=== PATIENT | male | born 1940 | race Caucasian/White ===

== ENCOUNTER 2019-01-05 00:34 | Emergency (ER) | payer OTHER ==
[~2019-01-05] VITALS: Ht 167.6 cm; Wt 79.4 kg
[2019-01-05 00:48] VITALS: BP 152/98
--- NOTE | 2019-01-05 00:51 | NUR ---
BIBRA. C/O "SOB, DIAPHORETIC" +SOB. +ACUTE DISTRESS. CONNECTED TO CPAP. GIVEN NITRO. WHEEZING NOTED. AOX4, TACHYCARDIC, TACHYPNEIC, HYPERTENSIVE. SKIN WARM DRY INTACT. SEEN BY DR HOLT. FAMILY AT BEDSIDE.
[2019-01-05] MEDS ORDERED: LIDOCAINE 2% JEL UROJET 10 ML MM ONE (00:56)
[2019-01-05] MEDS ORDERED: FUROSEMIDE 40 MG/4 ML VIAL ONE (00:56)
[2019-01-05] MEDS ORDERED: ASPIRIN 81 MG TAB.CHEW ONE (00:57)
[2019-01-05] MEDS ORDERED: NITROGLYCERIN PACKET 1 GM PACKET ONE (00:57)
[2019-01-05 00:58] LABS: BASOPHILS # (AUTO) 0.1 /CMM (0.0-0.2); BASOPHILS % (AUTO) 0.7 % (0.0-2.0); EOSINOPHILS % (AUTO) 3.5 % (0.0-6.0); HEMATOCRIT 38 % (39-51); HEMOGLOBIN 12.7 g/dL (13.5-17.5); LYMPHOCYTES # (AUTO) 1.7 /CMM (0.8-4.8); MEAN CORPUSCULAR HGB CONC 34 g/dl (31.0-36.0); MEAN CORPUSCULAR VOLUME 94 fL (80-96); MONOCYTES # (AUTO) 0.8 /CMM (0.1-1.30); MONOCYTES % (AUTO) 9.6 % (2.0-12.0); NEUTROPHILS # (AUTO) 5.6 /CMM (1.8-8.9); NEUTROPHILS % (AUTO) 66.2 % (43.0-81.0); PLATELET COUNT (AUTO) 263 /CMM (150-450); RED BLOOD CELL COUNT(AUTO) 4.02 MIL/uL (4.5-6.0); WHITE BLOOD COUNT (AUTO) 8.5 K/uL (4.3-11.0)
[2019-01-05] MEDS: ASPIRIN 81 MG TAB.CHEW PO ONE (01:00)
[2019-01-05] MEDS: FUROSEMIDE 40 MG/4 ML VIAL IV ONE (01:00)
[2019-01-05] MEDS: NITROGLYCERIN PACKET 1 GM PACKET TD ONE (01:05)
[2019-01-05 01:07] LABS: CALCIUM, SERUM 8.4 mg/dL (8.5-10.1); CARBON DIOXIDE 23 mmol/L (21-32); CHLORIDE 98 mmol/L (98-107); CREATININE 1.2 mg/dL (0.6-1.3); GLUCOSE 182 mg/dL (74-106); POTASSIUM 4.6 mmol/L (3.5-5.1); SODIUM SERUM 133 mmol/L (136-145); UREA NITROGEN, BLOOD 30 mg/dL (7-18)
[2019-01-05] MEDS: LIDOCAINE 2% JEL UROJET 10 ML MM ONE (01:15)
[2019-01-05 01:19] LABS: ALANINE AMINOTRANSFERASE 47 U/L (12-78); ALBUMIN 3.4 g/dL (3.4-5.0); ALKALINE PHOSPHATASE 71 U/L (46-116); ASPARTATE AMINOTRANSFERASE 38 U/L (15-37); B-TYPE NATRIURETIC PEPTIDE 7461 PG/ML (0-125); BILIRUBIN,DIRECT 0.2 mg/dL (0.0-0.2); BILIRUBIN,TOTAL 0.5 mg/dL (0.2-1.0)
--- NOTE | 2019-01-05 01:25 | NUR ---
INSERTED CAT PER MD ORDER. PT RUSH WELL. WILL CONT TO MONITOR.
[2019-01-05 01:26] LABS: D-DIMER 1.41 mg/L(FEU (0.17-0.50)
[2019-01-05] MEDS: IV NS 0.9% 500 ML BAG IV ONE (02:08)
--- NOTE | 2019-01-05 02:09 | NUR ---
NITRO PATCH D/C PER MD. STARTED INFUSING IVF
--- NOTE | 2019-01-05 02:13 | NUR ---
RT AT BEDSIDE. SWITCHING FROM CPAP TO SIMPLE MASK @ 6L. O2 SAT 99%
[2019-01-05] MEDS ORDERED: CT SWABBABLE VALVE TRANS SET 1 EA INFUS.SET MC ONE (02:17)
[2019-01-05] MEDS ORDERED: IV NS 0.9% 250 ML IV ONE (02:17)
[2019-01-05] MEDS ORDERED: IOHEXOL-350 100 ML VIAL IV ONE (02:17)
--- NOTE | 2019-01-05 02:32 | NUR ---
PT TAKEN TO CT VIA HECTOR
--- NOTE | 2019-01-05 02:47 | NUR ---
PT RETURNED FROM CT. RUSH WELL. CALLED RT PER RT REQUEST
[2019-01-05 03:10] LABS: ABG BASE EXCESS -4.6 mmol/L; ABG OXYGEN SATURATION 74.6 % (92.0-98.5); ABG PH 7.315 (7.350-7.450); ABG PO2 43.1 mmHg (75.0-100.0); COHb 0.6 % (0.5-1.5); MetHb 0.5 % (0.0-1.5); O2Hb 73.8 % (94.0-97.0); SITE, ABG Right Radial; VENT MODE, BG 6L/M MASK
--- NOTE | 2019-01-05 03:17 | NUR ---
Patient is resting comfortably in bed with eyes closed. Easily aroused. VSS
[2019-01-05 04:35] VITALS: BP 136/53
--- NOTE | 2019-01-05 04:36 | NUR ---
AMANDA EPRP CALLED
--- NOTE | 2019-01-05 04:40 | NUR ---
Patient is resting comfortably in bed with eyes closed. Easily aroused. VSS. CAT HAS MD LYN NOTIFIED
--- NOTE | 2019-01-05 05:19 | NUR ---
ACCEPTED TO [facility] ER TO ER, DR DE LA ROSA, NUMBER FOR REPORT [phone], ALS TRANSPORT ETA 45 MINS
--- NOTE | 2019-01-05 06:07 | NUR ---
REPORT GIVEN TO BALJIT FARNSWORTH FOR TIA AT [facility]
--- NOTE | 2019-01-05 06:22 | NUR ---
DRAINED CAT WITH ABOUT 900ML, YELLOW IN COLOR
== END 2019-01-05 06:36 | disposition short-term general hospital (02) ==
LOC: EDBD 00:37 → ER 00:37
DX: J96.00 Acute respiratory failure, unspecified whether with hypoxia or hypercapnia (principal); I11.0 Hypertensive heart disease with heart failure; I50.9 Heart failure, unspecified; J90 Pleural effusion, not elsewhere classified
CPT/HCPCS: 36415; 36600; 51702; 71045; 71275; 80048; 80076; 83880; 84484; 85025; 85378; 85730; 93005; 96374; 99291; A4606; J1940; J3490; J7050 ×3; Q9967

== ENCOUNTER 2022-12-16 22:24 | Inpatient (IN) | payer OTHER ==
[~2022-12-16] VITALS: Ht 167.6 cm; Wt 68.5 kg
--- NOTE | 2022-12-16 22:27 | NUR ---
[id number] FROM HOME FOR SOB "MORE LETHARGIC" SATTING 78% RA AT SCENE. ON 2L SATTING 92% WAS JUST DC'D FROM [facility] YESTERDAY. PT A/OX3; NIGERIAN SPEAKING. CONNECTED PT TO POX AND MONITOR. SAFETY MEASURES IN PLACE.
--- NOTE | 2022-12-16 22:30 | NUR ---
GTUBE PEG INTACT
[2022-12-16] MEDS ORDERED: FUROSEMIDE 20 MG/2 ML VIAL ONE (22:47)
--- NOTE | 2022-12-16 22:55 | NUR ---
RFA #18G S/L BLOOD COLLECTED AND SENT TO LAB
--- NOTE | 2022-12-16 22:58 | NUR ---
COVID ANTIGEN SWAB COLLECTED AND SENT TO LAB
--- NOTE | 2022-12-16 22:59 | NUR ---
ESE 187; DR. LEONARDO BILLINGSLEY AWARE
[2022-12-16] MEDS ORDERED: FUROSEMIDE 20 MG/2 ML VIAL IV ONE (23:00)
--- NOTE | 2022-12-16 23:09 | NUR ---
RT AT PT'S BEDSIDE FOR ABG
--- NOTE | 2022-12-16 23:17 | NUR ---
MANAGER CODING AT PT'S BEDSIDE
[2022-12-16 23:20] LABS: ABG BASE EXCESS 4.5 mmol/L; ABG PCO2 42.3 mmHg (35.0-45.0); ABG PH 7.452 (7.350-7.450); ABG PO2 96.6 mmHg (75.0-100.0); COHb 0.2 % (0.5-1.5); MetHb 0.2 % (0.0-1.5); O2Hb 96.4 % (94.0-97.0); SITE, ABG Right Radial; VENT MODE, BG 5L NASAL CANNULA
[2022-12-16 23:20] LABS: BASOPHILS % (AUTO) 0.2 % (0.0-2.0); HEMATOCRIT 31 % (39-51); HEMOGLOBIN 9.8 g/dL (13.5-17.5); LYMPHOCYTES # (AUTO) 0.7 K/uL (0.8-4.8); LYMPHOCYTES % (AUTO) 4.8 % (20.0-44.0); MEAN CORPUSCULAR HGB CONC 32 g/dl (31.0-36.0); MEAN CORPUSCULAR VOLUME 96 fL (80-96); MONOCYTES # (AUTO) 0.8 K/uL (0.1-1.30); MONOCYTES % (AUTO) 5.5 % (2.0-12.0); NEUTROPHILS # (AUTO) 13.4 K/uL (1.8-8.9); NEUTROPHILS % (AUTO) 87.5 % (43.0-81.0); PLATELET COUNT (AUTO) 213 K/uL (150-450); RED BLOOD CELL COUNT(AUTO) 3.19 MIL/uL (4.5-6.0); WHITE BLOOD COUNT (AUTO) 15.3 K/uL (4.3-11.0)
[2022-12-16 23:30] LABS: CALCIUM, SERUM 9.1 mg/dL (8.5-10.1); CARBON DIOXIDE 31 mmol/L (21-32); CHLORIDE 98 mmol/L (98-107); CREATININE 1.6 mg/dL (0.6-1.3); GLUCOSE 192 mg/dL (74-106); POTASSIUM 4.6 mmol/L (3.5-5.1); SODIUM SERUM 132 mmol/L (136-145); UREA NITROGEN, BLOOD 75 mg/dL (7-18)
[2022-12-16 23:42] LABS: ALANINE AMINOTRANSFERASE 23 U/L (12-78); ALKALINE PHOSPHATASE 64 U/L (46-116); ASPARTATE AMINOTRANSFERASE 21 U/L (15-37); BILIRUBIN,DIRECT 0.2 mg/dL (0.0-0.2); BILIRUBIN,TOTAL 0.3 mg/dL (0.2-1.0); TOTAL PROTEIN, SERUM 7.4 g/dL (6.4-8.2)
--- NOTE | 2022-12-16 23:54 | NUR ---
CALLED MAIDA MENDIETA AND OPENED A CASE. AWAITING FOR MD'S CALL BACK
--- NOTE | 2022-12-17 01:54 | NUR ---
ANA ROSA, TELVA: [phone]
[2022-12-17] MEDS ORDERED: MAG HYDROX/AL HYDROX/SIMETH 30 ML UDC PO PRN (02:00)
[2022-12-17] MEDS ORDERED: Z GUARD REMEDY 4 OZ OINT TP PRN (02:00)
[2022-12-17] MEDS ORDERED: ONDANSETRON HCL/PF 4 MG/2 ML VIAL IVP PRN (02:00)
[2022-12-17] MEDS ORDERED: MAGNESIUM HYDROXIDE 30 ML UDC PO PRN (02:00)
[2022-12-17] MEDS ORDERED: ACETAMINOPHEN 325 MG TABLET PO PRN (02:00)
--- NOTE | 2022-12-17 02:07 | NUR ---
URINE COLLECTED AND SENT TO LAB
[2022-12-17] MEDS ORDERED: LEVO50TA8 GT (02:23)
[2022-12-17] MEDS ORDERED: AMLO-212 GT (02:23)
--- NOTE | 2022-12-17 02:23 | NUR ---
REPORT GIVEN TO ARIANNE Bolanos RN FOR TIA
[2022-12-17 02:55] VITALS: BP 148/59
[2022-12-17 03:00] VITALS: BP 148/59
--- NOTE | 2022-12-17 03:03 | NUR ---
PT TRANSFERRED TO 326-1 VIA ACLS PROTOCOL. VSS. ALL BELONGINGS WITH PT.
--- NOTE | 2022-12-17 03:20 | NUR ---
FIBERGLASS FINISHERRESTAURANT MAINTENANCE TECHNICIAN NOTE PATIENT ARRIVED AT THE UNIT FROM ER ON THE [facility].PATIENT IS ROMANSH SPEAKING, BRONSON RN,HELPED WITH THE TRANSLATION. PATIENT IS ON 3 LPM OXYGEN, O2 SAT IS 98%. UPON ARRIVAL, V/S ARE TAKEN THE FOLLOWING: BP IS 148/59, HR IS 68, TEMP IS 97.6 ORALLY, AND HIS WEIGHT IS 151 LBS VIA BED SCALE. PATIENT HAS G-TUBE, PLACEMENT IS CHECKED. FLUSHED WITH 20 CC OF WATER. PATENT AND INTACT. ORIENTATED THE SURROUNDINGS TO THE PATIENT, VERBALIZED UNDERSTANDING. PATIENT HAS PACEMAKER ON HIS L UPPER CHEST. PATIENT IS ON EXTERNAL OVERCOIL STEPPER, ON THE MONITOR, HIS HEART RHYTHM IS AV PACING WITH HEART RATE AT 60S. SAFETY MEASURES ARE IN PLACED: BED IN LOWEST AND LOCKED POSITION; SIDE RAILS X 2; CALL LIGHT AND TABLE ARE WITHIN REACH. WILL CONTINUE MONITORING THE PATIENT AND PROVIDE THE CARE PT NEEDS.
[2022-12-17 04:00] VITALS: BP 149/57
--- NOTE | 2022-12-17 06:46 | NUR ---
SUPERVISOR SPECIAL EFFECTS CLOSING NOTE PATIENT IS SLEEPING IN BED. HE IS ON 3 LPM OXYGEN, O2 SAT IS 98%. IV ACCESS IS AT HIS R FA, #18G, SL. PATENT AND INTACT. PATIENT HAS G-TUBE, PATENT AND INTACT. PATIENT IS ON EXTERNAL FOIL STAMP OPERATOR, ON THE MONITOR, HIS HEART RHYTHM IS AV PACING WITH HEART RATE AT 60S. PATIENT'S DAUGHTER WILL BRING PATIENT'S HOME MEDICATION LIST AND HIS FEEDING INFORMATION. SAFETY MEASURES ARE IN PLACED: BED IN LOWEST AND LOCKED POSITION; SIDE RAILS X 2; CALL LIGHT AND TABLE ARE WITHIN REACH. WILL ENDORSE NEXT SHIFT NURSE TO FOLLOW UP WITH THE PATIENT CARE.
[2022-12-17 07:00] VITALS: BP 169/50
[2022-12-17] MEDS ORDERED: BISA5TAB10 GT (08:20)
[2022-12-17] MEDS ORDERED: DORZ10DR11 LEFTEYE (08:20)
[2022-12-17] MEDS ORDERED: DICL100G34 TP (08:20)
[2022-12-17] MEDS ORDERED: POLY17PO4 GT (08:20)
[2022-12-17] MEDS ORDERED: BISO5TAB20 GT (08:20)
[2022-12-17] MEDS ORDERED: ALLO100T GT (08:20)
[2022-12-17] MEDS ORDERED: SODI1TAB66 GT (08:20)
[2022-12-17] MEDS ORDERED: MELA3TAB41 GT (08:20)
[2022-12-17] MEDS ORDERED: FURO20TA4 GT (08:20)
[2022-12-17] MEDS ORDERED: FERR300L GT (08:20)
[2022-12-17] MEDS ORDERED: MULT-447 GT (08:20)
[2022-12-17] MEDS ORDERED: DOCU50LI13 GT (08:20)
--- NOTE | 2022-12-17 09:00 | NUR ---
RN NOTE Patient's BP is 169/50, no PRN meds at this time. Dr. Jermaine Coronel aware.
--- NOTE | 2022-12-17 09:16 | NUR ---
RN NOTE Urine collected and sent to lab.
--- NOTE | 2022-12-17 09:28 | NUR ---
ELECTRONICS SPECIALIST OPENING NOTE Patient in bed, asleep. A/O x 4, Mosotho speaking. On 3LPM of O2, breathing evenly and unlabored. No SOB or s/s of distress noted. IV access on RFA #18 SL, intact and patent. G-tube in place, intact and flushes well. On external monitor showing V-pacing, HR 79. Safety precautions in p lace: bed in low, locked position; siderails up x2; call light within reach. Will continue to monitor.
[2022-12-17] MEDS: IPRATROPIUM NEB FS 0.5 MG/2.5 ML AMPUL.NEB NEB SCH ×3 (10:00→20:27)
[2022-12-17] MEDS ORDERED: ATOR10TA PO (10:15)
[2022-12-17] MEDS ORDERED: CRAN425C6 PO (10:15)
[2022-12-17] MEDS ORDERED: NUT.250L18 PO (10:15)
[2022-12-17] MEDS ORDERED: LATA2.5D15 EACHEYE (10:15)
[2022-12-17] MEDS ORDERED: LACT1CAP72 PO (10:15)
[2022-12-17] MEDS ORDERED: FERR1TAB90 GT (10:15)
[2022-12-17] MEDS ORDERED: CYAN25003 SL (10:15)
[2022-12-17] MEDS ORDERED: CALC1TAB30 GT (10:15)
--- NOTE | 2022-12-17 10:57 | NUR ---
PATIENT EXPRRESS NO SOB AT THIS MOMENT AND TX WILL START ON THE NEXT AROUND. TX NOT GIVEN DUE TO CLOSE TIME TO THE NEXT TX. Addendum: 12/17/22 at 1059 by LULU HARDEN RT Amended: Links added.
[2022-12-17] MEDS ORDERED: LEVOFLOXACIN 500 MG /D5W 100ML 100 ML IV SCH (12:00)
[2022-12-17 15:28] LABS: COLOR,URINE LIGHT YELLOW (YELLOW)
[2022-12-17 15:29] LABS: BILIRUBIN,URINE NEGATIVE (NEGATIVE); LEUKOCYTE ESTERASE ,URINE NEGATIVE (NEGATIVE); NITRITE, URINE NEGATIVE (NEGATIVE); PH,URINE 7.5 (5.0-8.0); PROTEIN,URINE 1+ mg/dl (NEGATIVE); UGLUCOSE NEGATIVE (NEGATIVE); UROBILINOGEN,URINE 0.2 EU/dL (0.2)
[2022-12-17 15:33] LABS: CREATININE, URINE 16.7 MG/DL (30.0-125.0)
[2022-12-17 15:50] LABS: BACTERIA,URINE None seen /HPF (None Seen); RBC,URINE NONE SEEN /HPF (0-2); SQUAMOUS EPITHELIAL CELL,UR Rare /HPF (None Seen); WBC,URINE NONE SEEN /HPF (0-3)
[2022-12-17] MEDS ORDERED: GLUCERNA 1.2 1,000 ML BOTTLE NG PRN (19:00)
--- NOTE | 2022-12-17 19:25 | NUR ---
PATIENT CONSUMER MARKETER CLOSING NOTE Patient in bed, resting. A/O x 4, Serbian speaking. On 3LPM of O2, breathing evenly and unlabored. No SOB or s/s of distress noted. IV access on RFA #18 SL, intact and patent. G-tube in place, intact and flushes well. On external monitor showing V-pacing, HR on the 70's. Patient for transfer to [facility], waiting for call from [place] for transfer details. Safety precautions in place: bed in low, locked position; siderails up x2; call light within reach. Will endorse to shift production supervisor nurse for TIA.
--- NOTE | 2022-12-17 19:25 | NUR ---
FIELD SERVICE POULTRY TECHNICIAN OPENING NOTE Patient in bed, resting. A/O x 4, Belarusian speaking. On 3LPM of O2, breathing evenly and unlabored. No SOB or s/s of distress noted. IV access on RFA #18 SL, intact and patent. G-tube in place, intact and flushes well. On external monitor showing V-pacing, HR on the 70's. Patient for transfer to [facility], waiting for call from [place] for transfer details. Safety precautions in place: bed in low, locked position; siderails up x2; call light within reach. Will endorse to manufacturing supervisor 2nd shift nurse for TIA. Addendum: 12/17/22 at 1925 by MARGO ADAMS RN CORRECTION: FIELD SERVICE POULTRY TECHNICIAN CLOSING NOTE
--- NOTE | 2022-12-17 19:30 | NUR ---
MARKETING FINANCE SPECIALIST OPENING NOTE RECEIVED PATIENT IN BED WITH DAUGHTER AT BED SIDE. PATIENT IS ON 3 LPM OXYGEN, O2 SAT IS 97%. IV ACCESS IS AT HIS R FA, #18G, SL. PATENT AND INTACT. G-TUBE, PATENT AND INTACT. NO RESIDUAL NOTED. PATIENT IS ON TELE MONITOR, ON THE MONITOR READING V PACING WITH HEART RATE AT 70. WILL START G -TUBE FEEDING OF GLUCERNA 1.2 AT 40 ML/HR. ALL SAFETY MEASURES IN PLACED: BED IN LOWEST AND LOCKED POSITION; SIDE RAILS X 2; CALL LIGHT AND TABLE WITHIN REACH. PATIENT AWAITING TO BE TRANSFER TO [place] .WILL CONTINUE TO MONITOR CLOSELY.
[2022-12-18] MEDS: IPRATROPIUM NEB FS 0.5 MG/2.5 ML AMPUL.NEB NEB SCH ×2 (01:50→07:58)
[2022-12-18 06:44] LABS: BASOPHILS % (AUTO) 0.2 % (0.0-2.0); EOSINOPHILS % (AUTO) 4.1 % (0.0-6.0); HEMATOCRIT 29 % (39-51); HEMOGLOBIN 9.7 g/dL (13.5-17.5); LYMPHOCYTES # (AUTO) 0.9 K/uL (0.8-4.8); LYMPHOCYTES % (AUTO) 9.1 % (20.0-44.0); MEAN CORPUSCULAR HGB CONC 34 g/dl (31.0-36.0); MEAN CORPUSCULAR VOLUME 95 fL (80-96); MONOCYTES # (AUTO) 0.9 K/uL (0.1-1.30); MONOCYTES % (AUTO) 9.2 % (2.0-12.0); NEUTROPHILS # (AUTO) 7.5 K/uL (1.8-8.9); NEUTROPHILS % (AUTO) 77.4 % (43.0-81.0); PLATELET COUNT (AUTO) 187 K/uL (150-450); WHITE BLOOD COUNT (AUTO) 9.7 K/uL (4.3-11.0)
[2022-12-18 07:11] LABS: CARBON DIOXIDE 29 mmol/L (21-32); CHLORIDE 102 mmol/L (98-107); CREATININE 1.6 mg/dL (0.6-1.3); GLUCOSE 110 mg/dL (74-106); MAGNESIUM 3.5 mg/dL (1.8-2.4); PHOSPHORUS 5.7 mg/dL (2.5-4.9); POTASSIUM 4.4 mmol/L (3.5-5.1); SODIUM SERUM 139 mmol/L (136-145); UREA NITROGEN, BLOOD 74 mg/dL (7-18)
--- NOTE | 2022-12-18 07:30 | NUR ---
STOCKKEEPER CLOSING NOTE PATIENT IN BED AWAKE. PATIENT IS ON 3 LPM OXYGEN, O2 SAT IS 97%. IV ACCESS IS AT HIS R FA, #18G, SL. PATENT AND INTACT. G-TUBE, PATENT AND INTACT. NO RESIDUAL NOTED. PATIENT IS ON TELE MONITOR, ON THE MONITOR READING V PACING WITH HEART RATE AT 75. G -TUBE FEEDING OF GLUCERNA 1.2 AT 40 ML/HR. ALL SAFETY MEASURES IN PLACED: BED IN LOWEST AND LOCKED POSITION; SIDE RAILS X 2; CALL LIGHT AND TABLE WITHIN REACH. PATIENT AWAITING TO BE TRANSFER TO [place] .WILL ENDORSE FOR TIA.
--- NOTE | 2022-12-18 07:30 | NUR ---
RN NOTES ADRIAN CALLED FROM [facility] AROUND 0645 AND STATED PATIENT WILL BE PICKED UP AT 0800. SHE GAVE ROOM NUMBER. PATIENT WILL BE TRANSFERRED TO [facility] AT [place] ROOM NUMBER [id number] BED A . WITH PHONE NUMBER [phone] CALLED AT 0705 AM AND GAVE REPORT TO JUAN AT [facility]. LISA CALLED AT 0730 AND STATED THE AMBULANCE WILL BE PRN AND SOFTWARE TEST AND VALIDATION ENGINEER TIME WILL BE AT 0950. ENDORSED TO MORNING SHIFT NURSE FOR FOLLOW UP. CALLED THE DAUGHTER 2 TIMES WITH PHONE NUMBER [phone] AND LEFT MASSAGE FOR TRANSFERRING HER FATHER TIME. DAUGHTER TOOK ALL BELONGINGS EXCEPT GLASSES, CELL PHONE AND CUTTER ALUMINUM SHEET. ENDORSED THE INCOMING SHIFT NURSE TO FOLLOW UP.
--- NOTE | 2022-12-18 07:31 | NUR ---
RN OPENING NOTE RECEIVED PATIENT IN BED ASLEEP. EASILY AROUSED. NO SIGNS OF ACUTE DISTRESS NOTED. A/O X4, VERBALLY RESPONSIVE. ON O2 INHALATION @3LPM VIA N/C, NO SOB NOTED, BREATHING EVEN AND UNLABORED. DENIES ANY PAIN AT THIS TIME. NOTED WITH IV ACCESS ON RIGHT FOREARM #18G, INTACT AND PATENT, SALINE LOCKED. WITH G-TUBE INTACT AND PATENT RUNNING GLUCERNA 1.2 @40 ML/HR. ON TELE MONITORING CURRENTLY V-PACING IN THE 80'S. SAFETY MEASURE IN PLACE. BED IN LOW AND LOCKED POSITION, HOB ELEVATED, SIDE RAILS UP X2, CALL LIGHT PLACED WITHIN EASY REACH. WILL CONTINUE TO MONITOR PATIENT.
[2022-12-18 08:00] VITALS: BP 155/55
--- NOTE | 2022-12-18 09:40 | NUR ---
COMMISSIONING SPECIALIST NOTE PATIENT TRANSFERRED TO [facility] IN STABLE CONDITION. PATIENT REMAINS AWAKE, A/O X4, VERBALLY RESPONSIVE AND ABLE TO MAKE NEEDS KNOWN. EXIT CARE FOLDER GIVEN TO [facility] CREW, HANDOFF REPORT GIVEN. ALL BELONGINGS ACCOUNTED FOR, FORM SIGNED BY PATIENT. PATIENT PICKED UP BY [facility], LEFT UNIT @0930 VIA [place].
== END 2022-12-18 09:30 | disposition short-term general hospital (02) | DRG 189 ==
LOC: ER 22:26 → TELE 12-17 02:40
DX: J96.01 Acute respiratory failure with hypoxia (principal); I50.23 Acute on chronic systolic (congestive) heart failure; N17.0 Acute kidney failure with tubular necrosis; I13.0 Hypertensive heart and chronic kidney disease with heart failure and stage 1 through stage 4 chronic kidney disease, or unspecified chronic kidney disease; E87.1 Hypo-osmolality and hyponatremia; E46 Unspecified protein-calorie malnutrition; I42.9 Cardiomyopathy, unspecified; Z20.822 Contact with and (suspected) exposure to COVID-19; E88.09 Other disorders of plasma-protein metabolism, not elsewhere classified; N18.30 Chronic kidney disease, stage 3 unspecified; D72.829 Elevated white blood cell count, unspecified; D64.9 Anemia, unspecified; E78.5 Hyperlipidemia, unspecified; E03.9 Hypothyroidism, unspecified; I35.1 Nonrheumatic aortic (valve) insufficiency; Z95.0 Presence of cardiac pacemaker; Z79.899 Other long term (current) drug therapy
CPT/HCPCS: 36415; 36600; 71045-TC; 76770-TC; 80048-TC; 80076-TC; 81001; 82570-TC; 82962-TC; 83735-TC; 83880; 84100-TC; 84300-TC; 84484-TC; 85025-TC; 87040-TC; 87081-TC; 87086-TC; 93307-TC; 94799-TC; C9803; G0378; J1940; J1956; J7050